=== PATIENT | female | born 2000 | race Caucasian/White ===

== ENCOUNTER 2022-06-06 15:02 | Outpatient (REF) | payer OTHER, SELFPAY ==
[2022-06-06 15:19] LABS: MANUAL DIFF FLAG NO
[2022-06-06 15:40] LABS: Basophils Absolute Auto 0.1 X10*3/uL (0.0-0.2); Basophils Percent Auto 0.8 % (0-2); Eosinophils Absolute Auto 0.1 X10*3/uL (0.0-0.4); Hemoglobin 11.8 g/dl (12.0-16.0); Imm Gran Abs Auto 0.03 X10*3/uL (0.00-0.03); Imm Gran Pct Auto 0.5 % (0.0-0.4); Lymphocytes Absolute Auto 1.8 X10*3/uL (1.2-4.9); Lymphocytes Percent Auto 29.2 % (20-40); Mean Corpuscular HGB Conc 34.7 g/dl (31.0-35.0); Mean Corpuscular Hemoglobin 30.4 pg (27.0-33.0); Mean Corpuscular Volume 87.6 fL (80.0-98.0); Mean Platelet Volume 9.6 fL (9.4-12.3); Monocytes Absolute Auto 0.2 X10*3/uL (0.1-1.2); Monocytes Percent Auto 3.7 % (2-11); Neutrophils Absolute Auto 3.8 x10*3/uL (2.0-8.3); Neutrophils Percent Auto 63.8 % (45-73); Platelet Count 287 X10*3/uL (160-400); Red Blood Count 3.88 X10*6/uL (4.20-5.50); Red Cell Distribution Width 11.6 % (11.0-16.0)
[2022-06-06 16:08] LABS: Alanine Aminotransferase 15 U/L (0-31); Albumin Level 4.4 g/dL (3.5-5.0); Alkaline Phosphatase 54 U/L (39-117); Anion Gap 12 (12-20); Aspartate Amino Transferase 15 U/L (5-31); Bilirubin Total 0.8 mg/dL (0.0-1.0); Blood Urea Nitrogen 10 mg/dL (9-16); Calcium 9.5 mg/dL (8.4-10.2); Carbon Dioxide 24 mmol/L (22-29); Chloride 105 mmol/L (96-108); Cholesterol 189 mg/dL; Estimated Glomerular Filt Rate > 60; Glucose Random 104 mg/dL (60-115); HDL Cholesterol 66 mg/dL; LDL Cholesterol Calculated 111 mg/dl; Potassium 4.3 mmol/L (3.3-5.1); Sodium 137 mmol/L (135-145); Total Protein 7.4 g/dL (6.5-8.0); Triglycerides 61 mg/dL
[2022-06-06 16:23] LABS: Free T4 (Free Thyroxine) 0.87 ng/dL (0.71-1.85); Thyroid Stimulating Hormone 1.09 uIU/mL (0.32-4.0)
== END 2022-06-06 15:03 | disposition home or self-care (01) ==
LOC: HO.LAB 15:02
PROVIDERS: PCP Pediatrics; Visit Provider Physician Assistant Medical
DX: Z00.00 Encounter for general adult medical examination without abnormal findings (principal); Z13.0 Encounter for screening for diseases of the blood and blood-forming organs and certain disorders involving the immune mechanism; Z13.220 Encounter for screening for lipoid disorders; Z13.29 Encounter for screening for other suspected endocrine disorder
CPT/HCPCS: 36415; 80053; 80061; 84439; 84443; 85025

== ENCOUNTER 2024-09-23 10:48 | Outpatient (AMB) | payer OTHER, SELFPAY ==
--- OUTSIDE RECORDS SUMMARY | 2024-09-23 11:17 | XMS_ITS | Encounter Summary ---
Author Organization [facility] Address [address] [place] [address] Care Team Providers Care Restoration Officer Name Role Phone Emiliana Maradiaga MD Primary Care Prov ider Encounter Details Date Type Department Care Team Description 11/27/2020 Release of Information Medical Records [address] [place] [id number] Abstract, Provider Social History Tobacco Use Types Packs/Day Years Used Date Smoking Tobacco: Never Smokeless Tobacco: Never Alcohol Use Standard Drinks/Week Comments Not Asked 0 (1 standard drink = 0.6 oz pur e alcohol) Sex Assigned at Date Recorded Not on file COVID-19 Exposure Response Date Recorded In the last month, have you been in contact with someone who was confirmed or suspected to have Coronavirus / COVID-19? No / Unsure 11/23/2020 9:33 AM EDT documented as of this encounter Plan of Treatment Not on file documented as of this encounter Visit Diagnoses Not on filedocumented in this encounter Care Teams Restoration Officer Relationship Specialty Start Date End Date Emiliana Maradiaga MD [address] [place] [id number] PCP - General Pediatrics 01/18/15 documented as of this encounter
--- OUTSIDE RECORDS SUMMARY | 2024-09-23 11:17 | XMS_ITS | Clinical Summary ---
Author Organization [facility] Address [address] [place] [address] Care Team Providers Care Commercial Production Editor Name Role Phone Emiliana Maradiaga MD Primary Care Prov ider Allergies Active Allergy Reactions Severity Noted Date Comments Dust 09/20/2008 Food Allergy 01/10/2008 Pistachio nuts, sees retail account manager; Family reports no epipen needed Pollen 09/20/2008 Seasonal Allergies 11/25/2010 Medications Medication Sig Dispensed Refills Start Date End Date Status norethindrone-ethinyl estradiol (MICROGESTIN 06/06) 1-20 MG-MCG per tablet TAKE 1 TABLET BY MOUTH EVERY DAY 21 Tablet 11 02/19/2022 Active triamcinolone (KENALOG) 0.1 % cream APPLY TO RASH 2 TIMES DAILY FOR UP TO 10 DAYS 30 g 2 08/04/2022 Active Active Problems Problem Noted Date 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 Overview: Sees retail account manager Allergic rhinitis, cause unspecified Eczema 08/09/2007 Resolved Problems Problem Noted Date Resolved Date Molluscum contagiosum 02/25/2011 05/24/2014 Conjunctivitis, acute 09/22/2007 02/25/2011 Immunizations Name Administration Dates Next Due DTaP 08/04/2006, 4,2002,09/13,2002 Gardasil 9 (Hpv) 07/07/2019,02/24/2019, 9 HIB 08/01/2003, 3,2002,06/30 Hepatitis B-3 Dose (<19yrs) 01/30/2003, 3,2002 Influenza (6-35 months) 04/14/2005 Influenza (> 6 Months) 02/25/2011,2009,04/06/2008,04/05,06/05/2006 Influenza H1N1 Pandemic Flu Vaccine 05/28/2009 MMR (Cfxfjqe-Mxtvz-Kxirdmq) 08/01/2003 MMRV (Umvibtd-Dgzac-Tolyacc-Varicella) 7 Meningococcal (Menactra) 09/13/2018,05/24/2014 Pneumococcal(Pedi) Conjugate PCV-7 05/29,2002,2002,06/30 Polio (IPV) 08/04/2006, 3,2002,06/30 Tdap 05/24/2014 Varicella 05/29/2003 Family History Medical History Relation Name Comments early Maternal Grandfather as resu lt of rheumatic fever; marleni Maternal Grandmother Cancer of the Colon Paternal Grandfather ; Cancer of the Lung Paternal Grandmother ; ; was heavy smoker Relation Name Status Comments Father Alive 12/05/1959 Maternal Grandfather Maternal Grandmother Mother Alive 09/20/1969 Paternal Grandfather Paternal Grandmother Social History Tobacco Use Types Packs/Day Years Used Date Smoking Tobacco: Never Smokeless Tobacco: Never Alcohol Use Standard Drinks/Week Comments Not Asked 0 (1 standard drink = 0.6 oz pur e alcohol) Sex Assigned at Date Recorded Not on file Last Filed Vital Signs Vital Sign Reading Time Taken Comments Blood Pressure 122/70 06/04/2022 3:18 PM EST Pulse 88 06/04/2022 3:18 PM EST Temperature 36.4 ??C (97.5 ??F) 06/04/2022 3:18 PM ES T Respiratory Rate 16 09/22/2016 3:42 PM EDT Oxygen Saturation - - Inhaled Oxygen Concentration - - Weight 65.3 kg (144 lb) 06/04/2022 3:18 PM EST Height 164 cm (5' 4.57 ) 06/04/2022 3:18 PM EST Body Mass Index 24.29 06/04/2022 3:18 PM EST Plan of Treatment Health Maintenance Due Date Last Done Comments Covid-19 Vaccine (#1) 2002 CHOLESTEROL SCREENING 2022 CERVICAL CANCER SCREENING 2023 GONORRHEA & CHLAMYDIA SCREENING 06/04/2023 DTAP/TDAP/TD (7 - Td or Tdap) 05/24/2024, 08/04/2006, 08/01/2003, Additional history exists INFLUENZA (Season Ended) 2025 011, 04/09/2010, 04/06/2008, Additional history exists BASELINE HEALTH EXAM 18-39 06/04/2027 06/04/2022 PNEUMOCOCCAL VACCINE FOR HIG H RISK PATIENTS (#1) 2067 HUMAN PAPILLOMAVIRUS (HPV) Completed 07/07, 02/24/2019, 12/16/2018 Care Teams Commercial Production Editor Relationship Specialty Start Date End Date Emiliana Maradiaga MD [address] [place] [address] PCP - General Pediatrics 01/18/15
--- OUTSIDE RECORDS SUMMARY | 2024-09-23 11:17 | XMS_ITS | Encounter Summary ---
Author Organization [facility] Address [address] [place] [address] Care Team Providers Care Nutrition Professor Name Role Phone Emiliana Maradiaga MD Primary Care Prov ider Reason for Visit * Reason Onset Date Comments Note,school 05/31/2020 Encounter Details Date Type Department Care Team Description 05/31/2020 Telephone Pediatrics - [place] [address] [place] [address] Emiliana Maradiaga MD [address] [place] [address] Note,school Social History Tobacco Use Types Packs/Day Years Used Date Smoking Tobacco: Never Smokeless Tobacco: Never Alcohol Use Standard Drinks/Week Comments Not Asked 0 (1 standard drink = 0.6 oz pur e alcohol) Sex Assigned at Date Recorded Not on file documented as of this encounter Miscellaneous Notes * Telephone Encounter - Victor Hugo Maradiaga MD - 05/31/2020 10:07 AM EST I spoke to mom. Eva was tested at on 05/25/2020, she tested positive. She has been quarantined since. Mom will bring the documentation. She No longer has symptoms. She will be able to go back to school on 06/04/2020. * Telephone Encounter - Jenny Manriquez L.P.NTk - 05/31/2020 9:49 AM EST Can we write this note we have no covid test results.Letter written for you to sign if ok. * Telephone Encounter - Nupur Barros - 05/31/2020 9:33 AM EST Symptoms patient is presenting: requesting a note for school (sports) for clearance stating she wasCovid tested on 05/25/2020 and was positive. Has been quarantined since 05/21/2020. Last day of quarantine will be 05/25 For ALL patients calling to schedule any appointment (routine, sick visit, follow up, consult, etc.) in the outpatient setting please ask the following questions: ?? Do you have fever of higher than 101, sore throat with difficulty swallowing or severe shortnessof breath? NO documented in this encounter Plan of Treatment Not on file documented as of this encounter Visit Diagnoses Not on filedocumented in this encounter Care Teams Nutrition Professor Relationship Specialty Start Date End Date Emiliana Maradiaga MD [address] [place] [id number] PCP - General Pediatrics 01/18/15 documented as of this encounter
--- OUTSIDE RECORDS SUMMARY | 2024-09-23 11:17 | XMS_ITS | Encounter Summary ---
Author Organization [facility] Address [address] [place] [address] Care Team Providers Care Research Nurse Practitioner Name Role Phone Emiliana Maradiaga MD Primary Care Prov ider Encounter Details Date Type Department Care Team Description 12/12/2015 Drum Carrier Report Medical Records [address] [place] [address] [place], SUE Social History Tobacco Use Types Packs/Day Years Used Date Smoking Tobacco: Never Alcohol Use Standard Drinks/Week Comments Not Asked 0 (1 standard drink = 0.6 oz pur e alcohol) Sex Assigned at Date Recorded Not on file documented as of this encounter Plan of Treatment Not on file documented as of this encounter Visit Diagnoses Not on filedocumented in this encounter Care Teams Research Nurse Practitioner Relationship Specialty Start Date End Date Emiliana Maradiaga MD [address] [place] [address] PCP - General Pediatrics 01/18/15 documented as of this encounter
--- NOTE | 2024-09-23 11:35 | AM.OFFWIN_ITS ---
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 She states that there have been a couple of things causing her anxiety lately, including recently quitting vaping, sleeping poorly, and an upcoming interview. she denies any recent illnesses. Denies any shortness of breath or dizziness. Denies any chest pain. [facility] Social History Patient Tobacco Use Status: Former Tobacco user Review of Systems Const All systems reviewed & are unremarkable except as noted in HPI and below Physical Exam Vital Signs: Last Vital Signs Temp 98.2 F 09/23/24 11:36 Pulse 80 09/23/24 11:36 BP 110/70 09/23/24 11:36 Pulse Ox 100 09/23/24 11:36 Oxygen Delivery Method Room Air 09/23/24 11:36 BMI result Body Mass Index 23.3 Const General: cooperative, healthy appearing, comfortable and no acute distress Limitations: no limitations Resp Effort & Inspection: normal respiratory effort and able to speak in complete sentences Auscultation: clear to auscultation bilaterally Cardio Palpation: normal PMI Rate: regular rate Rhythm: regular rhythm Heart sounds: S1 normal heart sound present and S2 normal heart sound present Skin General skin exam: no rashes or lesions noted Extrem General: Yes no clubbing, cyanosis or edema Psych Appearance: grossly normal Mental Status: mental status grossly normal Speech and movement: Normal speech and movement present Affect: Anxious affect present (mildly anxious/tearful at times) Attitude: cooperative Thought process: Normal thought process present Thought content: Normal thought content present Insight: Good insight present (Psych) Judgement: Good judgement present (Psych) Assessment & Plan Assessment & Plan (1) Palpitations: Code(s): R00.2 - Palpitations Plan: EKG in the office was normal. Physical assessment unremarkable. Patient has been feeling increased anxiety lately and attributes this to physical symptoms. We reviewed EKG and resources available to her such as therapy. Patient has an appointment with new PCP this month and is going to consider this at that time. She feels that if she can get better sleep, she would feel much better. She is open to trying hydroxyzine at HS. we reviewed indications, use, possible side effects of medication. She feels reassured by visit today. We discussed that if she develops any recurrent palpitations, any chest pain /discomfort /dizziness, she can go to the emergency department for evaluation. She verbalizes understanding and agrees to plan Orders: Orders AMB EKG-In Office Today R00.2 - Palpitations Medications: New hydroxyzine pamoate Take one capsule at bedtime as needed for sleep. 25 mg PO BEDTIME 2 weeks 14 caps 0RF F41.9 - Anxiety disorder, unspecified Coding Level of Care Code Est Pt Level 4 (59624) Diagnoses Palpitations R00.2
[2024-09-23 11:36] VITALS: BP 110/70; PULSE 80; TEMP 36.8; O2SAT 100; BMI 23.3
== END 2024-09-23 12:21 | disposition home or self-care (01) ==
PROVIDERS: PCP Pediatrics; Visit Provider Nurse Practitioner Family
DX: R00.2 Palpitations (principal)

== ENCOUNTER → 2024-09-23 10:48 | Outpatient (BNVA) | payer OTHER, SELFPAY | PROVIDERS: PCP Pediatrics | DX: Z13.89 Encounter for screening for other disorder (principal) ==

== ENCOUNTER 2024-10-11 12:47 | Outpatient (AMB) | payer OTHER, SELFPAY ==
--- OUTSIDE RECORDS SUMMARY | 2024-10-11 12:50 | XMS_ITS | Encounter Summary ---
Author Organization [facility] Address [address] [place] [address] Care Team Providers Care Spray Booth Operator Name Role Phone Emiliana Maradiaga MD Primary Care Prov ider Reason for Visit * Reason Comments E-prescribe Rx Request Encounter Details Date Type Department Care Team Description 07/01/2019 Refill Pediatrics - [place] [address] [place] [address] Emiliana Maradiaga MD [address] [place] [address] E-prescribe Rx Request Social History Tobacco Use Types Packs/Day Years Used Date Smoking Tobacco: Never Smokeless Tobacco: Never Alcohol Use Standard Drinks/Week Comments Not Asked 0 (1 standard drink = 0.6 oz pur e alcohol) Sex Assigned at Date Recorded Not on file documented as of this encounter Miscellaneous Notes * Telephone Encounter - Nupur Barros - 07/01/2019 4:16 PM EST When was patients last PE/WCC? 09/13/2018 When is patients next PE/WCC scheduled? Emiliana Maradiaga RX REQUEST WHEN MED IS ON THE LIST: All of the medications requested were on the CURRENT MEDS list Did you check the Pharmacy information above?: YES Indicate how soon the patient needs the script: BY THE END OF THE DAY Patient would like script to be: E-PRESCRIBED/FAXED TO PHARMACY Is the doctor here today?: NO Can the message wait until the doctor returns?: NO Has the patient been told that the prescription will not be filled until the end of the day? YES Emiliana Maradiaga Payor: [employer] [facility] / Plan: PPO $20 [place] [id number] / Product Type: PPO [id number] documented in this encounter Plan of Treatment Not on file documented as of this encounter Visit Diagnoses Not on filedocumented in this encounter Care Teams Spray Booth Operator Relationship Specialty Start Date End Date Emiliana Maradiaga MD [address] [place] [id number] PCP - General Pediatrics 01/18/15 documented as of this encounter
--- NOTE | 2024-10-11 12:53 | A.OFFPC_ITS ---
Vital Signs 10/11/24 13:11 Height 5 ft 5.5 in Weight 138 lb 2 oz BMI 22.6 BP 114/68 Blood Pressure Location Lt brachial Position Sitting Respiration 12 Pulse 72 Pulse Source Pulse Oximeter Temp 97.6 F Temp Source Oral Pulse Oximetry (%) 98 Oxygen Delivery Method Room Air Intake Visit Reasons: CPE Intake Note: New patient to establish care and cpe Home Restoration Service Cleaner Required: No Allergies No Known Allergies [No Known Allergies*] Allergy (Verified 10/11/24 13:39) Medication List - Last Reconciled 10/11/24 by MATILDE Bailon- hydroxyzine pamoate 25 mg PO BEDTIME 2 weeks Tobacco use date assessed: 10/11/24 Dental Screening Dental Screen Date: 10/11/24 Did you have a dental visit in the last 12 months?: Yes Did you have a dental problem in the last 6 months where you did not have access to dental care?: No Was dental information given to patient?: Patient has dentist HPI HPI Comments History of Present Illness Details 24 y/o F with ANA M, anemia, Raynauds, chr onic low back pain, eczema, GERD Social: works at [employer] in [place], living w/ parents. Used to vape. Quit. Graduated [employer] with [employer], unsure what she will do w/ this right now surgery: oral surgery Family hx: Mom and Dad alive and well. Paternal grandparents w/ skin ca - does not sound like melanoma; . Maternal grandparents alive and well Health Maintenance Tdap 2014, declined Pap has never had a Pap. Specialists: [facility] Here today to est care; no medical records from previous PCP: Sophia Notes avail and reviewed: Walk in 09/2024 chest tightness, palps; EKG normal start prn hydroxyzine Labs 2022 anemia otherwise wnl - History of Generalized Anxiety Disorde r with PRN hydroxyzine, no recent use, interested in counseling. - Raynaud's Phenomenon managed with life style changes. - Chronic low back pain, under current m anagement, referral to physical therapy pending. - Episodic GERD with dietary triggers, r elieved by TUMS. - Eczema on wrists and face managed with CeraVe, previously treated with triamcinolone. - No history of Pap smear screening. - Fear of flying addressed with PRN Ativ an advice due to upcoming travel. Social History - The patient has successfully resolved recent work and life-related stressors. - The patient is preparing for travel to [place], indicating social and leisure activities as stress factors. - The patient's fear of flying has been addressed with a recommendation for PRN Ativan. Health Maintenance - The patient has declined Tdap vaccinat ion at this visit. - Recommendations include pursuing labor atory evaluations. - The patient has expressed interest in counseling and a potential ESTHETICIAN SPA referral for Pap smear screening. - Recommendation to return to the office for a complete physical examination in one year or sooner if needed. Review of Systems - Psychiatric: Reports resolved work and life stressors, interested in counseling. Denies recent hydroxyzine use. - Vascular: Reports Raynaud's managed wi lifestyle modifications. - Musculoskeletal: Reports chronic low b ack pain managed by [facility]. - Gastrointestinal: Reports episodic JESSICA D with dietary triggers, relieved by TUMS. - Dermatological: Reports eczema on wris ts and face, treated with CeraVe. - Women?s Health: Denies previous Pap sm ear. Physical Exam General: Well developed, well nourished, in no acute distress. Appears stated age. Head: Normocephalic, atraumatic. Eyes: Pupils are equal, round and reactive to light and accommodation. Conjunctivae are clear. Vision grossly normal. Ears: TMs clear AU, EACS WNL Nose: Patent, without discharge. Neck: Supple, no adenopathy or thyromegaly. Breast: Edu on SBE Lungs: Clear to auscultation bilaterally. No rales, rhonchi or wheeze noted. Good air flow in all vallejo. Heart: Regular rate and rhythm. No murmurs, click, rubs or gallops are noted. Abdomen: Bowel sounds present in all quadrants. The abdomen is soft, nontender, with no masses or organomegaly noted. No hernias are noted. : Deferred. Reviewed LANEY & recommendations for routine ESTHETICIAN SPA. Patient has never had a Pap smear. Pulses: Peripheral pulses are equal and palpable bilaterally. Extremities: No clubbing, cyanosis nor edema is noted. History of Raynaud's managed with lifestyle modifications. Neurologic: Gait and station normal. Cranial Nerves 2-12 intact. Motor strength grossly symmetrical and intact. No sensory loss. Balance normal. Skin: No rashes, ulcers, or lesions noted. Turgor is good. Skin color is good. Hair and nails are without abnormalities. Patient has eczema on wrists and face, uses [id number]-[id number] CeraVe with effective relief. Psych: Normal eye contact, affect and mood appropriate, and normal interactions. Patient is alert and appropriate to context. History of generalized anxiety disorder, interested in counseling referral. Discussion Notes During the visit, I conversed with the patient regarding the management of her various chronic conditions and wellness needs. We discussed her current medications and how she is managing her symptoms effectively. We reviewed the benefits of counseling for Generalized Anxiety Disorder, and I supported her interest to pursue this path. I emphasized the importance of laboratory evaluations to maintain health and well-being, also suggesting a ESTHETICIAN SPA referral for a Pap smear due to its significance in preventive health care. For her fear of flying, I recommended the use of PRN Ativan, especially with her upcoming trip to [facility]. We agreed upon a plan for her to return annually for a complete physical examination or earlier if needed. The provision of patient autonomy in timing and further care decisions was emphasized. Assessment and Plan 1. Generalized Anxiety Disorder - Recommend counseling. - Continue PRN hydroxyzine. 2. Raynaud's Phenomenon - Maintain lifestyle modifications. 3. Chronic Low Back Pain - Continue existing management, start ph ysical therapy. 4. Gastroesophageal Reflux Disease - Use diet awareness, continue TUMS for relief. 5. Eczema - Continue CeraVe use. Patient Instructions - Pursue counseling for anxiety. - Use lifestyle changes to manage Raynau d's. - Schedule and attend physical therapy s essions. - Use TUMS for GERD relief and avoid tri gger foods. - Continue to use CeraVe for eczema. - Ativan or hydroxyzine as needed for fl denise anxiety - ESTHETICIAN SPA referral for women's health screen ing - Screening labs today - Come back in one year for a full physi farooq, or earlier if needed. Consent Patient was informed and verbally consented to the use of an ambient scribe for clinic note documentation during this visit. [facility] Medical History (Updated 10/11/24 @ 14:11 by MATILDE Bailon-) Anxiety Eczema GERD (gastroesophageal reflux disease) Raynauds syndrome Surgical History (Updated 10/11/24 @ 13:15 by Jorge Montoya MA) No pertinent past surgical history Family History (Updated 10/11/24 @ 13:14 by Jorge Montoya MA) Maternal Grandmother Thyroid disorder Social History (Updated 10/11/24 @ 13:14 by Jorge Montoya MA) Household Members: Family Household Members Other:: Parents Housing: House Are you a primary health care coach to a significant other at home: No Do you presently have visiting nurse or other home services: No Alcohol intake: current Alcohol intake frequency: a few times a month Patient Tobacco Use Status: Never used Tobacco e-Cigarette/Vaping Use: Former Use Second Hand Smoke Exposure: No Current occupational status: employed Current occupation: [employer] Cognitive needs: No Hearing needs: No Vision needs: No Questionnaire PHQ-9 Over the last 2 weeks, how often have you been bothered by any of the following problems? 1. Little interest or pleasure in doing things: not at all 2. Feeling down, depressed, or hopeless: not at all 3. Trouble falling or staying asleep, or sleeping too much: several days 4. Feeling tired or having little energy: several days 5. Poor appetite or overeating: not at all 6. Feeling bad about yourself - or that you are a failure or have let yourself or your family down: not at all 7. Trouble concentrating on things, such as reading the newspaper or watching television: not at all 8. Moving or speaking so slowly that other people could have noticed. Or the opposite - being so fidgety or restless that you have been moving around a lot more than usual: not at all 9. Thoughts that you would be better off or of hurting yourself in some way: not at all Total score: 2 Depression Screening Interpretation: Negative Depression Screening Done: Yes 81424 - PHQ-9 Billing: Yes Source: Developed by Drs. John Irwin, Moon Rooney, Octavio Osman and colleagues, with an educational tiffani from [employer]. Thrive Questionnaire Date Thrive assessed: 10/11/24 I am a: Patient What is your living situation today?: I have a steady place to live Within the past 12 months, did the food you bought not last and you didn't have the money to get more?: Never true Within the past 12 months, did you worry whether your food would run out before you got money to buy more?: Never true Do you have trouble paying for medicines?: No Do you have trouble getting transportation to medical appointments?: No Do you have trouble paying your heating and electricity bill?: No Do you have trouble taking care of your child, family member or friend?: No Do you have trouble with day-to-day activities such as bathing, preparing meals, shopping, managing finances, etc.?: No Are you currently unemployed and looking for a job?: No Are you interested in more education?: Yes Please select the resources that you would like help with: None Currently or been in a relationship where the following occur: No concerns reported THRIVE Score: 0 AUDIT C Alcohol Use Questionnaire (AUDIT-C) 1. How often do you have a drink containing alcohol?: 2-4 times a month 2. How many drinks containing alcohol do you have on a typical day when you are drinking?: 1 or 2 3. How often do you have six or more drinks on one occasion?: Never Total Score: 2 Score Reviewed/Action Taken: Yes ANA M-7 AMB Questionnaire ANA M-7 Date ANA M - 7 assessed: 10/11/24 Feeling nervous, anxious, or on edge: 1 = Several days Not being able to stop or control worryin = Not at all Worrying too much about different things: 0 = Not at all Trouble relaxin = Not at all Being so restless that it is hard to sit still: 0 = Not at all Becoming easily annoyed or irritable: 0 = Not at all Feeling afraid as if something awful might happen: 0 = Not at all Total ANA M-7 score (0-4 normal; 5-9 mild; 10-14 moderate; 15-21 severe): 1 Source: Developed by Drs. John Iwrin, Moon Rooney, Octavio Osman and colleagues, with an educational tiffani from [employer]. ANA M-7 Assessment Billing ANA M-7 Assessment Tool: ANA M-7 Assessment 33173 Physical exam (Primary Care) Vital Signs: Last Vital Signs Temp 97.6 F 10/11/24 13:11 Pulse 72 10/11/24 13:11 Resp 12 10/11/24 13:11 BP 114/68 10/11/24 13:11 Pulse Ox 98 10/11/24 13:11 Oxygen Delivery Method Room Air 10/11/24 13:11 BMI result Body Mass Index 22.6 Tobacco/Smoking Status: Tobacco use Status Tobacco use date assessed 10/11/24 10/11/24 12:55 Patient Tobacco Use Status Never used Tobacco 10/11/24 13:15 e-Cigarette/Vaping Use Former Use 10/11/24 13:15 PHQ-9: PHQ-9 Score PHQ-9: Total score 2 10/11/24 12:55 Depression Screening Interpretation: Negative Thrive Assessment: Date of Thrive Assessment Date Thrive assessed 10/11/24 10/11/24 12:55 Currently or been in a relationship where the following occur: No concerns reported Coding Level of Care Code New Pt Prev Care 18-39yr(53487 Diagnoses Encounter for general adult medical examination with abnormal findings Z00.01 ANA M (generalized anxiety disorder) F41.1 Tetanus, diphtheria, and acellular pertussis (Tdap) vaccination declined Z28.21 Chronic bilateral low back pain without sciatica M54.50; G89.29 Back pain laterality: bilateral Sciatica presence: without sciatica GERD without esophagitis K21.9 History of nicotine vaping Z87.891 History of anemia Z86.2 Flexural eczema L20.82 Eczema type: flexural Raynaud's disease without gangrene I73.00 Raynaud?s-associated gangrene presence: without gangrene Fear of flying F40.243 Additional Codes ANA M-7 Assessment Billing - ANA M-7 Assessment Tool: ANA M-7 Assessment [id number] ([id number]) PHQ-9 - 73378 - PHQ-9 Billing: Yes ([id number]) Assessment & Plan Assessment & Plan (1) Encounter for general adult medical examination with abnormal findings: Onset Date: 10/11/24 Code(s): Z00.01 - Encounter for general adult medical examination with abnormal findings Category: Medical (2) ANA M (generalized anxiety disorder): Code(s): F41.1 - Generalized anxiety disorder Category: Medical (3) Tetanus, diphtheria, and acellular pertussis (Tdap) vaccination declined: Code(s): Z28.21 - Immunization not carried out because of patient refusal Category: Medical (4) Chronic low back pain: Comment: MANAGED BY [facility] Code(s): M54.50 - Low back pain, unspecified; G89.29 - Other chronic pain Category: Medical Qualifiers: Back pain laterality: bilateral Sciatica presence: without sciatica Qualified Code(s): M54.50 - Low back pain, unspecified; G89.29 - Other chronic pain (5) GERD without esophagitis: Code(s): K21.9 - Gastro-esophageal reflux disease without esophagitis Category: Medical (6) History of nicotine vaping: Code(s): Z87.891 - Personal history of nicotine dependence Category: Social Hx (7) History of anemia: Code(s): Z86.2 - Personal history of diseases of the blood and blood-forming organs and certain disorders involving the immune mechanism Category: Medical (8) Eczema: Code(s): L30.9 - Dermatitis, unspecified Category: Medical Qualifiers: Eczema type: flexural Qualified Code(s): L20.82 - Flexural eczema (9) Raynauds syndrome: Code(s): I73.00 - Raynaud's syndrome without gangrene Category: Medical Qualifiers: Raynaud?s-associated gangrene presence: without gangrene Qualified Code(s): I73.00 - Raynaud's syndrome without gangrene (10) Fear of flying: Code(s): F40.243 - Fear of flying Category: Medical Plan . Orders: Orders Ferritin Today F41.1 - Generalized anxiety disorder Hemoglobin A1c Today F41.1 - Generalized anxiety disorder Microalbumin, Random (w Creat) Today F41.1 - Generalized anxiety disorder TSH reflex Free T4 Today F41.1 - Generalized anxiety disorder Vitamin B12 and Folate Today F41.1 - Generalized anxiety disorder Vitamin D 25-OH Total Today F41.1 - Generalized anxiety disorder Complete Blood Count no Diff Today F41.1 - Generalized anxiety disorder Comprehensive Met. Panel Today F41.1 - Generalized anxiety disorder Lipid Panel Today F41.1 - Generalized anxiety disorder Referrals Nurse Navigator Referral F41.1 - Generalized anxiety disorder AUTOMOTIVE TIRE WORKER Referral Z12.4 - Encounter for screening for malignant neoplasm of cervix Medications: New lorazepam (Ativan) 1 mg PO DAILY PRN 6 tabs 0RF anxiety Patient Instructions: Patient Instructions - Pursue counseling for anxiety. - Use lifestyle changes to manage Raynaud's. - Schedule and attend physical therapy sessions. - Use TUMS for GERD relief and avoid trigger foods. - Continue to use CeraVe for eczema. - Ativan or hydroxyzine as needed for flying anxiety - ESTHETICIAN SPA referral for women's health screening - Screening labs today - Come back in one year for a full physical, or earlier if needed. Health screenings for women You should visit your health care provider from time to time, even if you are healthy. The purpose of these visits is to: Screen for medical issues Assess your risk for future medical problems Encourage a healthy lifestyle Update vaccinations and other preventive care services Help you get to know your provider in case of an illness Information Even if you feel fine, you should still see your provider for regular checkups. These visits can help you avoid problems in the future. For example, the only way to find out if you have high blood pressure is to have it checked regularly. High blood sugar and high cholesterol levels also may not have any symptoms in the early stages. A simple blood test can check for these conditions. There are specific times when you should see your provider or receive specific health screenings. The [place] Preventive Services Task Force publishes a list of recommended screenings. Below are screening guidelines for women ages 18 to 39. BLOOD PRESSURE SCREENING Your blood pressure should be checked at least once every 3 to 5 years if: Your blood pressure is in the normal range (top number less than 120 mm Hg and bottom number less than 80 mm Hg) You don't have risk factors for high blood pressure Ask your provider if you need your blood pressure checked more often if: The top number is 120 to 129 mm Hg or the bottom number is 70 to 79 mm Hg You have diabetes, heart disease, kidney problems, are overweight, or have certain other health conditions You have a first-degree relative with high blood pressure You are Black You had high blood pressure during a If the top number is 130 mm Hg or greater or the bottom number is 80 mm Hg or greater, this is considered stage 1 hypertension. Schedule an appointment with your provider to learn how you can reduce your blood pressure. Watch for blood pressure screenings in your area. Ask your provider if you can stop in to have your blood pressure checked. BREAST CANCER SCREENING Experts do not agree about the benefits of breast self-exams in finding breast cancer or saving lives. Talk to your provider about what is best for you. A screening mammogram is not recommended for most women under age 40. Your provider may discuss and recommend mammograms, MRI scans, or ultrasounds if you have an increased risk for breast cancer, such as: A mother or sister who had breast cancer at a young age (most often starting screening earlier than the age the close relative was diagnosed) You carry a high-risk genetic marker CERVICAL CANCER SCREENING Cervical cancer screening should start at age 21 years unless your provider advises otherwise. After the first test: Women ages 21 through 29 should have a Pap test every 3 years. Exoprts do not agree on whether HPV testing is recommended for this age group. Women ages 30 through 65 should be screened with either a Pap test every 3 years or the HPV test every 5 years or both tests every 5 years (called cotesting ). Women who have been treated for precancer (cervical dysplasia) should continue to have Pap tests for 20 years after treatment or until age 65, whichever is longer. If you have had your uterus and cervix removed (total hysterectomy), and you have not been diagnosed with cervical cancer or precancer (high grade cervical neoplasia), you do not need cervical cancer screening. CHOLESTEROL SCREENING Cholesterol screening should begin at: Age 45 for women with no known risk factors for coronary heart disease Age 20 for women with known risk factors for coronary heart disease Repeat cholesterol screening should take place: Every 5 years for women with normal cholesterol levels More often if changes occur in lifestyle (including weight gain and diet) More often if you have diabetes, heart disease, kidney problems, or certain other conditions DIABETES SCREENING You should be screened for diabetes starting at age 35 and then repeated every 3 years if you have no risk factors for diabetes. Screening may need to start earlier and be repeated more often if you have other risk factors for diabetes, such as: You have a first degree relative with diabetes. You are overweight or have obesity. You have high blood pressure, prediabetes, or a history of heart disease. Screening for diabetes should be done if you are planning to become and you are overweight and have other risk factors such as high blood pressure. DENTAL EXAM Go to the dentist once or twice every year for an exam and cleaning. Your dentist will evaluate if you need more frequent visits. EYE EXAM Have an eye exam every 5 to 10 years before age 40. If you have vision problems, have an eye exam every 2 years or more often if recommended by your provider. You should have an eye exam that includes an examination of your retina (back of your eye) at least every year if you have diabetes. IMMUNIZATIONS Commonly needed vaccines include: Flu shot: get one every year. COVID-19 vaccine: ask your provider what is best for you. Tetanus-diphtheria and acellular pertussis (Tdap) vaccine: have one at or after age 19 as one of your tetanus-diphtheria vaccines if you did not receive it as an adolescent. Tetanus-diphtheria: have a booster (or Tdap) every 10 years. Varicella vaccine: receive 2 doses if you never had chickenpox or the varicella vaccine. Hepatitis B vaccine: receive 2, 3, or 4 doses, depending on your exact circumstances. Measles, mumps, and rubella (MMR) vaccine: receive 1 to 2 doses if you are not already immune to MMR. Your provider can tell you if you are immune. Ask your provider about the human papillomavirus (HPV) vaccine if: You have not received the HPV vaccine in the past You have not completed the full vaccine series (you should catch up on this shot) Ask your provider if you should receive other immunizations if you have certain health problems that increase your risk for some diseases such as pneumonia. INFECTIOUS DISEASE SCREENING Women who are sexually active should be screened for chlamydia and gonorrhea up until age 25. Women 25 years and older should be screened for chlamydia and gonorrhea if at high risk. Screening for hepatitis C: All adults ages 18 to 79 should get a one-time test for hepatitis C. people should be screened at every . Screening for human immunodeficiency virus (HIV): All people ages 15 to 65 should get a one-time test for HIV. Depending on your lifestyle and medical history, you may also need to be screened for infections such as syphilis and HIV, as well as other infections. PHYSICAL EXAM All adults should visit their provider from time to time, even if they are healthy. The purpose of these visits is to: Screen for disease Assess your risk of future medical problems Encourage a healthy lifestyle Update your vaccinations and other preventive care services Maintain a relationship with a provider in case of an illness Your height, weight, and BMI should be checked at every exam. During your exam, your provider may ask you about: Depression and anxiety Diet and exercise Alcohol and tobacco use Safety issues, such as using seat belts, smoke detectors, and intimate partner violence Your medicines and risk for interactions SKIN SELF-EXAM Your provider may check your skin for signs of skin cancer, especially if you're at high risk, such as if you: Have had skin cancer before Have close relatives with skin cancer Have a weakened immune system OTHER SCREENING Talk with your provider about colon cancer screening if you have a strong family history of colon cancer or polyps, or if you have had inflammatory bowel disease or polyps yourself. Routine bone density screening of women under 40 is not recommended. Walk-In Care (Urgent Care): [facility] Make it Easy Walk-in for urgent medical issues such as: ? Seasonal Allergies ? Insect Bites ? Cough ? Diarrhea ? Acute Asthma Attacks ? Back, Knee or Joint Pain ? Ear Infection ? Fever without a Rash ? Headaches ? Nausea ? [place] Eye, Rash or Skin Irritation ? Sore Throat ? Sports Physicals ? Vomiting Most insurances are accepted. Patients do not need to be part of the [facility] to seek care at the walk-in clinic. Locations [address] [place] [address] , [place] [address] ? [phone] [facility] in [place] provides services to ages 18 and over. Open Thursday-Thursday: 8 a.m. to 5 p.m. and Thursday: 9 a.m. to 3 p.m.* *Hours may vary due to staffing availability. To confirm Walk-In Care hours in [place], please call [phone]. [address] [place] [address] ? [phone] [facility] in [place] provides services to ages 12 and over. Open Thursday-Thursday: 8 a.m. to 5 p.m. Hours may vary due to staffing availability. To confirm Walk-In Care hours in [place], please call [phone]. LABORATORY SERVICES: [facility] Lab ? Primary Location [address] [place] [address] Thursday through Thursday 6:00 AM ? 5:00 PM Thursday 7:00 AM ? 11:00 AM* [phone] The [facility] Lab is centrally located near the front entrance of the Medical Center for easy outpatient access. Convenient parking is provided for outpatients. *Hours may vary due to staffing availability. To confirm Laboratory hours for any location, please call [phone]. Offsite Location For your convenience, we offer offsite laboratory draw stations at the following locations: [address] [facility], [place] [address] [facility], [address], [place] Thursday through Thursday 7:30 AM ? 1:00 PM* [phone] *Hours may vary due to staffing availability. To confirm Laboratory hours for any location, please call [phone]. [place] ? [facility] [address] [facility], [place] Thursday through Thursday 6:00 AM ? 3:30 PM* Thursday 6:30 AM ? 3 PM* [phone] *Hours may vary due to staffing availability. To confirm Laboratory hours for any location, please call [phone]. [address] [facility] Thursday through Thursday 7:30 AM ? 4:00 PM* [phone] *Hours may vary due to staffing availability. To confirm Laboratory hours for any location, please call [phone] [place] [address] Thursday through 9:00 AM ? 4:00 PM* *Hours may vary due to staffing availability. To confirm Laboratory hours for any location, please call [phone]. Appointments are not necessary. Walk-ins are welcome. Like all the departments throughout the [facility], our Lab undergoes frequent reviews to ensure the quality and accuracy of test results, and our staff takes special pride in its status as a nationally accredited facility. Patient Portal: ONE PATIENT. ONE RECORD. BETTER CARE. [facility] has a fully integrated, cutting- edge mobile electronic health information system that has revolutionized the way we care for our patients and manage our organization. This system improves communication and coordination enabling us to provide safe, higher-quality care, and an overall positive experience for staff and patients. Our first priority, as always, is to deliver the highest quality care possible. The system is running in the background supporting that priority. This portal is for all [facility] services and practices. If you are experiencing any technical difficulties with enrolling or logging into the Patient Portal please complete the [facility] Patient Portal Technical Support Form. [facility] now offers a new secure on-line interactive tool for patients to review their health information ? ?Patient Portal. This interactive web portal will enable patients and their families to take an active role in their care by providing easy, secure access to their health information via the internet. The Patient Portal provides patients with instant access to their health information, including laboratory results, medications, allergies, demographic information, visit history, and more. In addition to managing their own care, parents and health care proxies with authorized consent will appreciate the ability to access the records of those individuals for whom they provide care. Please note: if you wish to gain access (Proxy) to another patient?s portal, you will be required to come to the Medical Records Department in person at [facility]. Both the patient giving proxy access and the proxy will need to provide photo identification and complete the appropriate authorization. The Patient Portal also allows track their appointments online. The [facility] Patient Portal also saves patients time by allowing them to submit updates to their demographic and contact information prior to their visits. Portal email notifications will also alert patients to any new activity on their portal, such as test results and new appointments. In order to initially enroll in the [facility] Patient Portal, you will need to enter some required information including the following: * your [facility] Medical Record number * your personal home email address * name * date of Please note: In order to enroll in the [facility] Patient Portal, we need to have your email address on file in your electronic medical record. ?The email address needs to be specific for one person (yourself) in order for your Portal enrollment to be successful. ?You can update your email address in person with our Registration staff when you are registering for a hospital visit. ?Otherwise, you will need to come to the Health Information Management (Medical Records) Department at [facility]. ?We are open from Thursday ? Thursday from 7:30 a.m. ? 4:30 p.m. ?You will be required to present a photo id. Once you have successfully enrolled in the Patient Portal, you will receive a one-time user id and password for the Portal, sent to your email address. ?This will allow you to log into the Patient Portal within 99 hrs and reset your own logon id and password, and define personal security questions. ?Once your permanent login and password have been set, you can log into the [facility] Patient Portal at any time via the blue button above or from the Portal Logon button on any page of the [facility] website. [facility] encourage all of our patients to enroll in Patient Portal as it presents a valuable opportunity for patients and their families to actively participate in their care and stay healthy Welcome to [facility]. ?We look forward to working with you.
[2024-10-11 13:11] VITALS: BP 114/68; PULSE 72; RESP 12; TEMP 36.4; O2SAT 98; BMI 22.6
== END 2024-10-11 14:12 | disposition home or self-care (01) ==
LOC: HO.HMCFM 12:48
PROVIDERS: PCP Nurse Practitioner Family; Visit Provider Nurse Practitioner Family
DX: Z00.01 Encounter for general adult medical examination with abnormal findings (principal); F41.1 Generalized anxiety disorder; Z28.21 Immunization not carried out because of patient refusal; M54.50 Low back pain, unspecified; G89.29 Other chronic pain; K21.9 Gastro-esophageal reflux disease without esophagitis; Z87.891 Personal history of nicotine dependence; Z86.2 Personal history of diseases of the blood and blood-forming organs and certain disorders involving the immune mechanism; L20.82 Flexural eczema; I73.00 Raynaud's syndrome without gangrene; F40.243 Fear of flying

== ENCOUNTER → 2024-10-11 12:47 | Outpatient (BNVA) | payer OTHER, SELFPAY | PROVIDERS: PCP Nurse Practitioner Family; Visit Provider Nurse Practitioner Family ==

== ENCOUNTER 2024-10-11 14:05 | Outpatient (REF) | payer OTHER, SELFPAY ==
[2024-10-11 18:08] LABS: Hematocrit 37.7 % (37.0-47.0); Hemoglobin 12.7 g/dl (12.0-16.0); Mean Corpuscular HGB Conc 33.7 g/dl (31.0-35.0); Mean Corpuscular Volume 89.1 fL (80.0-98.0); Mean Platelet Volume 9.8 fL (9.4-12.3); Platelet Count 361 X10*3/uL (160-400); Red Blood Count 4.23 X10*6/uL (4.20-5.50); Red Cell Distribution Width 11.9 % (11.0-16.0); White Blood Count 5.2 X10*3/uL (4.8-10.8)
[2024-10-11 18:09] LABS: Estimated Average Glucose 105 mg/dL; Hemoglobin A1c % 5.3 % (<6.0)
[2024-10-11 18:22] LABS: Alanine Aminotransferase 19 U/L (0-31); Alkaline Phosphatase 73 U/L (39-117); Anion Gap 12 (12-20); Aspartate Amino Transferase 22 U/L (5-31); Bilirubin Total 2.3 mg/dL (0.0-1.0); Blood Urea Nitrogen 12 mg/dL (9-16); Calcium 9.9 mg/dL (8.4-10.2); Carbon Dioxide 27 mmol/L (22-29); Chloride 104 mmol/L (96-108); Cholesterol 174 mg/dL (<200); Estimated Glomerular Filt Rate > 60; Glucose Random 86 mg/dL (60-115); HDL Cholesterol 69 mg/dL (>40); LDL Cholesterol Calculated 95 mg/dL (<100); Potassium 3.9 mmol/L (3.3-5.1); Sodium 139 mmol/L (135-145); Total Protein 7.8 g/dL (6.5-8.0); Triglycerides 51 mg/dL (<150)
[2024-10-11 18:40] LABS: Ferritin 35 ng/mL (10-122); TSH reflex Free T4 0.79 uIU/mL (0.32-4.0); Vitamin D 25-OH Total 49.3 ng/mL (>30)
[2024-10-11 18:49] LABS: Folate 13.5 ng/mL (> or = 4.0); Vitamin B12 461 pg/mL (200-900)
== END 2024-10-11 14:06 | disposition home or self-care (01) ==
LOC: HO.WFDLDS 14:05
PROVIDERS: Visit Provider Nurse Practitioner Family
DX: Z00.01 Encounter for general adult medical examination with abnormal findings (principal); F41.1 Generalized anxiety disorder; M54.50 Low back pain, unspecified; G89.29 Other chronic pain; K21.9 Gastro-esophageal reflux disease without esophagitis; L20.82 Flexural eczema; I73.00 Raynaud's syndrome without gangrene; F40.243 Fear of flying; Z86.2 Personal history of diseases of the blood and blood-forming organs and certain disorders involving the immune mechanism; Z87.891 Personal history of nicotine dependence; Z28.21 Immunization not carried out because of patient refusal; Z13.6 Encounter for screening for cardiovascular disorders
CPT/HCPCS: 36415; 80053; 80061; 82306; 82607; 82728; 82746; 83036; 84443; 85027; 96127

== ENCOUNTER 2024-10-24 12:52 | Outpatient (AMB) | payer OTHER, SELFPAY ==
--- NOTE | 2024-10-24 12:53 | MHC.PC.OV ---
Vital Signs 10/24/24 12:59 Height 5 ft 5.5 in Weight 139 lb BMI 22.8 BP 120/69 Blood Pressure Location Rt brachial Position Sitting Respiration 12 Pulse 68 Pulse Source Pulse Oximeter Temp 97.3 F Temp Source Oral Pulse Oximetry (%) 98 Oxygen Delivery Method Room Air Intake Visit Reasons: discuss liver labs, fatigue Intake Note: Follow up to review labs Maintenance Manager Required: No Allergies No Known Allergies [No Known Allergies*] Allergy (Verified 10/24/24 13:06) Medication List - Last Reconciled 10/24/24 by MATILDE Bailon- hydroxyzine pamoate 25 mg PO BEDTIME 2 weeks lorazepam (Ativan) 1 mg PO DAILY PRN Tobacco use date assessed: 10/24/24 Dental Screening Dental Screen Date: 10/24/24 Did you have a dental visit in the last 12 months?: Yes Did you have a dental problem in the last 6 months where you did not have access to dental care?: No Was dental information given to patient?: Patient has dentist HPI HPI Comments History of Present Illness Details 24 y/o F with ANA M, anemia, Raynauds, chronic low back pain, eczema, GERD Social: works at [employer] in [place], living w/ parents. Used to vape. Quit. Graduated [employer] with [employer], unsure what she will do w/ this right now surgery: oral surgery Family hx: Mom and Dad alive and well. Paternal grandparents w/ skin ca - does not sound like melanoma; . Maternal grandparents alive and well Health Maintenance Tdap 2014, declined Pap has never had a Pap. Specialists: [facility] History of Present Illness - The patient is a 24-year-old female presenting with fatigue and dyspnea, here w/ her Mom, who sent message via the portal w/ these complaints. I saw the patient recently who did not endorse any of these things to me. - Intermittent episodes of dyspnea and tachycardia, onset several weeks ago, worse over the last week. - Episodic tachycardia resting heart rate at 120 bpm. - Symptoms worse over the last week, slight improvement after stopping Zyrtec (2 days). - Concern of Zyrtec-induced hemolytic anemia. - Elevated bilirubin noted - Reports of indigestion without significant abdominal pain. - Denies history of conditions enhancing thromboembolic risk. - Previous normal EKG reported during an urgent care visit. - Feeling of cant breath comes on first ff'd by tachycardia, self limiting, can last 30 min - Not on OCP, denies chance of , denies personal or family hx of hypercoag, denies prolonged immobility. - generalized fatigue; shoulder and back pain - Mom called and declined referral to counseling for her; i asked pt about this today and she said she would like to wait 1 month at this time. - Edu provided to Mom and patient the provider:patient relationship and boundaries. Review of Systems - Cardiovascular: Reports intermittent tachycardia. - Respiratory: Reports episodes of dyspnea, no cough or wheezing. - Gastrointestinal: Reports indigestion, denies significant abdominal pain. - Neurological: Denies syncope. - Psychological: Reports consideration of anxiety. Physical Exam General: Well developed, well nourished, in no acute distress. Appears stated age. Head: Normocephalic, atraumatic. Eyes: Pupils are equal, round and reactive to light and accommodation. Conjunctivae are clear. No conjuntival pallor Neck: Supple, no adenopathy or thyromegaly. Lungs: Clear to auscultation bilaterally. No rales, rhonchi or wheeze noted. Good air flow in all vallejo. Heart: Regular rate and rhythm. No murmurs, click, rubs or gallops are noted. Abdomen: Bowel sounds present in all quadrants. The abdomen is soft, nontender, with no masses or organomegaly noted. No hernias are noted. Neurologic: Gait and station normal. Cranial Nerves 2-12 intact. Motor strength grossly symmetrical and intact. No sensory loss. Balance normal. Skin: No rashes, ulcers, or lesions noted. Turgor is good. Skin color is good. Hair and nails are without abnormalities. Patient has eczema on wrists and face, uses [id number] CeraVe with effective relief. Psych: Normal eye contact, affect and mood appropriate, and normal interactions. Patient is alert and appropriate to context. History of generalized anxiety disorder, interested in counseling referral. Discussion Notes During the visit, I discussed with the patient the potential causes for her tachycardia and dyspnea, including the possibility of a hemolytic process possibly triggered by chronic Zyrtec use, though this was noted to be rare. We explored the possibility of Gilbert syndrome contributing to her elevated bilirubin levels, which is typically a benign condition. An abdominal ultrasound was suggested to check for any subclinical gallbladder issues or other abdominal pathologies. We also discussed the implementation of a Holter monitor to assess the pattern of her tachycardia, ensuring it is not caused by any arrhythmic conditions other than sinus tachycardia. I addressed her concerns over anxiety potentially contributing to her symptoms, though she denied a strong correlation. I proposed repeating a comprehensive set of laboratory tests to further evaluate her blood counts and any indirect signs of hemolysis. I obtained verbal consent for the proposed tests and assessments and instructed the patient on the next steps, including following up on lab results and scheduling the abdominal ultrasound and Holter monitor. Assessment and Plan 1. Intermittent Tachycardia - Holter monitor placement planned. 2. Dyspnea - Monitoring symptoms post-treatment. 3. Fatigue - Observe improvement post-Zyrtec cessation. 4. 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 5. Anxiety - Monitor and reassess if necessary. Patient Instructions- Schedule the abdominal ultrasound. - Prepare for Holter monitor test by following prescribed activities. - Follow up on lab results for blood tests. - Seek care if symptoms such as chest pain or severe dyspnea occur. my office to fu once labs are back Patient was informed and verbally consented to the use of an ambient scribe for clinic note documentation during this visit. Total time spent caring for the patient today was 41 minutes. This includes time spent before the visit reviewing the chart, time spent during the visit, and time spent after the visit on documentation, reviewing laboratory results, diagnostic imaging, medications, performing a medically necessary evaluation, counseling on diagnoses, care coordination, ordering appropriate tests, ordering appropriate medications, review of tests performed by other providers, reporting test results with the patient, communication with other healthcare providers. [facility] Medical History (Updated 10/24/24 @ 18:25 by Rut Katz, [facility]) Anxiety Eczema GERD (gastroesophageal reflux disease) Raynauds syndrome Surgical History (Updated 10/11/24 @ 13:15 by Jorge Montoya MA) No pertinent past surgical history Family History (Updated 10/11/24 @ 13:14 by Jorge Montoya MA) Maternal Grandmother Thyroid disorder Social History (Updated 10/11/24 @ 13:14 by Jorge Montoya MA) Household Members: Family Household Members Other:: Parents Housing: House Are you a primary home care companion to a significant other at home: No Do you presently have visiting nurse or other home services: No Alcohol intake: current Alcohol intake frequency: a few times a month Patient Tobacco Use Status: Never used Tobacco e-Cigarette/Vaping Use: Former Use Second Hand Smoke Exposure: No Current occupational status: employed Current occupation: [employer] Cognitive needs: No Hearing needs: No Vision needs: No Questionnaire PHQ-9 Over the last 2 weeks, how often have you been bothered by any of the following problems? 1. Little interest or pleasure in doing things: not at all 2. Feeling down, depressed, or hopeless: not at all 3. Trouble falling or staying asleep, or sleeping too much: not at all 4. Feeling tired or having little energy: not at all 5. Poor appetite or overeating: not at all 6. Feeling bad about yourself - or that you are a failure or have let yourself or your family down: not at all 7. Trouble concentrating on things, such as reading the newspaper or watching television: not at all 8. Moving or speaking so slowly that other people could have noticed. Or the opposite - being so fidgety or restless that you have been moving around a lot more than usual: not at all 9. Thoughts that you would be better off or of hurting yourself in some way: not at all Total score: 0 Depression Screening Interpretation: Negative Depression Screening Done: Yes 34404 - PHQ-9 Billing: Yes Source: Developed by Drs. John Irwin, Moon Rooney, Octavio Osman and colleagues, with an educational tiffani from [employer]. Thrive Questionnaire Date Thrive assessed: 10/24/24 I am a: Patient What is your living situation today?: I have a steady place to live Within the past 12 months, did the food you bought not last and you didn't have the money to get more?: Never true Within the past 12 months, did you worry whether your food would run out before you got money to buy more?: Never true Do you have trouble paying for medicines?: No Do you have trouble getting transportation to medical appointments?: No Do you have trouble paying your heating and electricity bill?: No Do you have trouble taking care of your child, family member or friend?: No Do you have trouble with day-to-day activities such as bathing, preparing meals, shopping, managing finances, etc.?: No Are you currently unemployed and looking for a job?: No Are you interested in more education?: Yes Please select the resources that you would like help with: None Currently or been in a relationship where the following occur: No concerns reported THRIVE Score: 0 ANA M-7 AMB Questionnaire ANA M-7 Date ANA M - 7 assessed: 10/24/24 Feeling nervous, anxious, or on edge: 0 = Not at all Not being able to stop or control worryin = Not at all Worrying too much about different things: 0 = Not at all Trouble relaxin = Not at all Being so restless that it is hard to sit still: 0 = Not at all Becoming easily annoyed or irritable: 0 = Not at all Feeling afraid as if something awful might happen: 0 = Not at all Total ANA M-7 score (0-4 normal; 5-9 mild; 10-14 moderate; 15-21 severe): 0 Source: Developed by Drs. John Irwin, Moon Rooney, Octavio Osman and colleagues, with an educational tiffani from [employer]. ANA M-7 Assessment Billing ANA M-7 Assessment Tool: ANA M-7 Assessment 39710 Physical exam (Primary Care) Vital Signs: Last Vital Signs Temp 97.3 F 10/24/24 12:59 Pulse 68 10/24/24 12:59 Resp 12 10/24/24 12:59 BP 120/69 10/24/24 12:59 Pulse Ox 98 10/24/24 12:59 Oxygen Delivery Method Room Air 10/24/24 12:59 BMI result Body Mass Index 22.8 Tobacco/Smoking Status: Tobacco use Status Tobacco use date assessed 10/24/24 10/24/24 12:59 Patient Tobacco Use Status Never used Tobacco 10/24/24 12:54 e-Cigarette/Vaping Use Former Use 10/24/24 12:54 PHQ-9: PHQ-9 Score PHQ-9: Total score 0 10/24/24 13:10 Depression Screening Interpretation: Negative Thrive Assessment: Date of Thrive Assessment Date Thrive assessed 10/24/24 10/24/24 12:56 Currently or been in a relationship where the following occur: No concerns reported Results Reviewed Results Reviewed: Laboratory Result Units Range Interpretation Provider Comments White Blood Count 5.8 X10*3/uL (4.8-10.8) Red Blood Count 4.02 X10*6/uL (4.20-5.50) Low Hemoglobin 11.9 g/dl (12.0-16.0) Low Hematocrit 35.8 % (37.0-47.0) Low Mean Corpuscular Volume 89.1 fL (80.0-98.0) Mean Corpuscular Hemoglobin 29.6 pg (27.0-33.0) Mean Corpuscular Hemoglobin Concent 33.2 g/dl (31.0-35.0) Red Cell Distribution Width 12.2 % (11.0-16.0) Platelet Count 302 X10*3/uL (160-400) Mean Platelet Volume 10.2 fL (9.4-12.3) Nucleated RBC Absolute Count (auto) 0.000 X10*3/uL (0.0-0.012) Nucleated Red Blood Cells % (auto) 0.0 /100WBC (0.0-0.2) Absolute Reticulocyte Count 0.037 X10*6/uL (0.026-0.095) Percent Reticulocyte Count 0.9 % (0.5-1.8) Immature Reticulocyte Fraction 2.8 % (3.0-15.9) Low Reticulocyte Hemoglobin Equivalent 34.4 pg (30.0-35.0) D-Dimer High Sensitivity < 150 NG/ML Direct Bilirubin 0.6 mg/dL (0.0-0.5) High Lactate Dehydrogenase 243 U/L (122-220) High Coding Level of Care Code Est Pt Level 5 (91500) Complex EM visit Add On G2211 Diagnoses Palpitations R00.2 Chronic fatigue R53.82 Fatigue type: chronic, unspecified Elevated bilirubin R17 ANA M (generalized anxiety disorder) F41.1 GERD without esophagitis K21.9 History of anemia Z86.2 Additional Codes ANA M-7 Assessment Billing - ANA M-7 Assessment Tool: ANA M-7 Assessment 05641 ([id number]) PHQ-9 - 97227 - PHQ-9 Billing: Yes ([id number]) Assessment & Plan Assessment & Plan (1) Palpitations: Code(s): R00.2 - Palpitations Category: Medical (2) Fatigue: Code(s): R53.83 - Other fatigue Category: Medical Qualifiers: Fatigue type: chronic, unspecified Qualified Code(s): R53.82 - Chronic fatigue, unspecified (3) Elevated bilirubin: Onset Date: ~09/2024 Code(s): R17 - Unspecified jaundice Category: Medical (4) ANA M (generalized anxiety disorder): Code(s): F41.1 - Generalized anxiety disorder Category: Medical (5) GERD without esophagitis: Code(s): K21.9 - Gastro-esophageal reflux disease without esophagitis Category: Medical (6) History of anemia: Code(s): Z86.2 - Personal history of diseases of the blood and blood-forming organs and certain disorders involving the immune mechanism Category: Medical Plan . Orders: Orders ECG holter monitor 48 hour Today R00.2 - Palpitations Complete Blood Count no Diff Today R00.2 - Palpitations Bilirubin Direct Today R00.2 - Palpitations Reticulocyte Count Today R00.2 - Palpitations H pylori Ag Stool Today R00.2 - Palpitations D Dimer High Sensitivity Today R00.2 - Palpitations US abdomen complete Today R00.2 - Palpitations Lactate Dehydrogenase Today R00.2 - Palpitations
[2024-10-24 12:59] VITALS: BP 120/69; PULSE 68; RESP 12; TEMP 36.3; O2SAT 98; BMI 22.8
== END 2024-10-24 13:29 | disposition home or self-care (01) ==
LOC: HO.HMCFM 12:53
PROVIDERS: PCP Nurse Practitioner Family; Visit Provider Nurse Practitioner Family
DX: R00.2 Palpitations (principal); R53.82 Chronic fatigue, unspecified; R17 Unspecified jaundice; F41.1 Generalized anxiety disorder; K21.9 Gastro-esophageal reflux disease without esophagitis; Z86.2 Personal history of diseases of the blood and blood-forming organs and certain disorders involving the immune mechanism

== ENCOUNTER → 2024-10-24 12:52 | Outpatient (BNVA) | payer OTHER, SELFPAY | PROVIDERS: PCP Nurse Practitioner Family; Visit Provider Nurse Practitioner Family | DX: R00.2 Palpitations (principal); R53.82 Chronic fatigue, unspecified; R17 Unspecified jaundice; F41.1 Generalized anxiety disorder; K21.9 Gastro-esophageal reflux disease without esophagitis; Z86.2 Personal history of diseases of the blood and blood-forming organs and certain disorders involving the immune mechanism; Z13.31 Encounter for screening for depression; Z13.30 Encounter for screening examination for mental health and behavioral disorders, unspecified | CPT/HCPCS: 96127 ==

== ENCOUNTER 2024-10-24 13:39 | Outpatient (REF) | payer OTHER, SELFPAY ==
[2024-10-24 17:47] LABS: Hematocrit 35.8 % (37.0-47.0); Hemoglobin 11.9 g/dl (12.0-16.0); Immature Retic Fraction 2.8 % (3.0-15.9); Mean Corpuscular HGB Conc 33.2 g/dl (31.0-35.0); Mean Corpuscular Hemoglobin 29.6 pg (27.0-33.0); Mean Corpuscular Volume 89.1 fL (80.0-98.0); Mean Platelet Volume 10.2 fL (9.4-12.3); Platelet Count 302 X10*3/uL (160-400); Red Blood Count 4.02 X10*6/uL (4.20-5.50); Red Cell Distribution Width 12.2 % (11.0-16.0); Retic HGB Equivalent 34.4 pg (30.0-35.0); Reticulocyte Percent 0.9 % (0.5-1.8); Reticulocytes Absolute 0.037 X10*6/uL (0.026-0.095); White Blood Count 5.8 X10*3/uL (4.8-10.8)
[2024-10-24 17:57] LABS: D Dimer High Sensitivity < 150 NG/ML
[2024-10-24 18:04] LABS: Bilirubin Direct 0.6 mg/dL (0.0-0.5); Lactate Dehydrogenase 243 U/L (122-220)
== END 2024-10-24 13:40 | disposition home or self-care (01) ==
LOC: HO.WFDLDS 13:39
PROVIDERS: Visit Provider Nurse Practitioner Family
DX: R00.2 Palpitations (principal)
CPT/HCPCS: 36415; 82248; 83615; 85027; 85045; 85379

== ENCOUNTER → 2024-10-31 09:07 | Outpatient (REF) | payer OTHER, SELFPAY | LOC: HO.CARD 09:07 | PROVIDERS: PCP Nurse Practitioner Family; Visit Provider Nurse Practitioner Family | DX: R00.2 Palpitations (principal) | CPT/HCPCS: 93225 ==

== ENCOUNTER → 2024-10-31 09:09 | Outpatient (BNV) | payer OTHER, SELFPAY | PROVIDERS: PCP Nurse Practitioner Family; Visit Provider Internal Medicine | DX: I49.3 Ventricular premature depolarization (principal) | CPT/HCPCS: 93227 ==

== ENCOUNTER 2024-12-14 10:39 | Outpatient (REF) | payer OTHER, SELFPAY ==
--- NOTE | ~2024-12-14 | US_ITS ---
CLINICAL HISTORY: HIGH BILIRUBIN, ABNORMAL CBC US abdomen complete Comparison: None provided Findings: Examination is limited by bowel gas. The visualized pancreas is normal. The aorta and inferior vena cava are normal caliber. The liver is normal in size and echotexture. Right lobe length is 14.9 cm. There is no intrahepatic bile duct dilatation. The common duct is 3 mm in diameter. The gallbladder is normal. There is no sonographic Carlos sign. The main portal vein is antegrade. The right kidney is 11 cm in length. The left kidney is 10.6 cm in length. The spleen is 8.3 cm in length. No ascites. IMPRESSION: 1. Normal complete abdominal ultrasound. This document has been electronically signed by: Ashia Malik MD on 12/14/2024 16:40:50
== END 2024-12-14 10:40 | disposition home or self-care (01) ==
LOC: HO.US 10:39
PROVIDERS: PCP Nurse Practitioner Family; Visit Provider Nurse Practitioner Family
DX: R17 Unspecified jaundice (principal); R79.89 Other specified abnormal findings of blood chemistry
CPT/HCPCS: 76700

== ENCOUNTER → 2024-12-14 10:42 | Outpatient (BNV) | payer OTHER, SELFPAY | PROVIDERS: PCP Nurse Practitioner Family; Visit Provider Nuclear Medicine | DX: R17 Unspecified jaundice (principal) | CPT/HCPCS: 76700 ==